=== PATIENT | female | born 2000 | race Caucasian/White ===

== ENCOUNTER 2020-07-17 19:57 | Inpatient (IN) ==
[2020-07-17] MEDS ORDERED: LACTATED RINGERS 1,000 ML IV ONE (20:06)
[2020-07-17] MEDS ORDERED: MEPERIDINE 50 MG/1 ML VIAL IM PRN (20:06)
[2020-07-17 20:24] LABS: Basophils % 0.3 % (0.0-0.8); Eosinophils % 0.1 % (0.00-10.9); Hematocrit 30.5 VOL% (35.7-47.0); Hemoglobin 9.2 GM/DL (12.0-16.0); Immature Granulocytes % 0.8 %; Immature Granulocytes Absolute 0.12 #; Lymphocytes # 1.6 10*3/uL (1.4-4.0); Lymphocytes % 10.3 % (21.3-54.2); Mean Corpuscular HGB Conc 30.2 GM/DL (32-36); Mean Corpuscular Volume 73.3 FL (87-102); Mean Platelet Volume 11.1 FL (9.6-12.0); Monocytes % 3.8 % (1.7-12.7); Neutrophils % 84.7 % (38.7-73.9); Platelet Count 257 T/CUMM (130-400); Red Blood Count 4.16 MC/CUMM (3.8-5.5); Red Cell Distribution Width 16.2 % (9.3-17.3); White Blood Count 15.2 T/CUMM (4-12)
[2020-07-17 20:54] LABS: Albumin 2.8 G/DL (3.4-5.0); Bilirubin,Total 0.4 MG/DL (0.2-1.0); Osmolality,Calculated 273.7 MOS/KG (273-304); Total Protein 7.3 G/DL (6.4-8.3)
[2020-07-18] MEDS: ONDANSETRON 4 MG/2 ML VIAL IV PRN ×2 (00:40→08:24)
[2020-07-18] MEDS: MEPERIDINE 50 MG/1 ML VIAL IV PRN ×2 (00:44→05:21)
[2020-07-18] MEDS: LACTATED RINGERS 1,000 ML IV SCH ×2 (07:17→09:18)
[2020-07-18] MEDS ORDERED: ePHEDrine 50 MG/ML VIAL IV PRN (08:15)
[2020-07-18] MEDS ORDERED: NALOXONE 0.4 MG/ML VIAL IV PRN (08:15)
[2020-07-18] MEDS ORDERED: diphenhydrAMINE 50 MG/1 ML VIAL IV PRN (08:15)
[2020-07-18] MEDS ORDERED: FAMOTIDINE 20 MG/2 ML VIAL IV ONE (08:16)
[2020-07-18] MEDS ORDERED: CITRIC ACID/SODIUM CITRATE 30 ML UDCUP PO ONE (08:16)
[2020-07-18] MEDS ORDERED: OXYTOCIN/LR 20 UNIT/1,000 ML BAG IV SCH (09:00)
[2020-07-18] MEDS: fentaNYL 2 MCG/ROPIV 0.2% EPID 100 ML EPIDURAL SCH ×2 (09:54→16:01)
[2020-07-18 12:35] LABS: Bilirubin,Urine Negative (Negative); Blood, Urine Moderate mg/dL (Negative); Glucose,Urine (UA) Negative (Negative); Ketones,Urine Negative (Negative); Mucus,Urine Occasional /LPF (Occasional); Nitrite,Urine Negative (Negative); Protein,Urine Negative; RBC,Urine 7 /HPF (0-4); Squamous Epithelial Cell,Urine Occasional /HPF (0-10); Urine Appearance CLEAR (Clear); Urine Color Yellow (Yellow); Urine Specific Gravity 1.015 (1.001-1.035); Urine Urobilinogen < 2.0 EU/DL (0.2-1.0); WBC,Urine 2 /HPF (0-6)
[2020-07-18] MEDS ORDERED: miSOPROStoL 200 MCG TABLET ONE (16:52)
[2020-07-18] MEDS ORDERED: TRANEXAMIC ACID 1,000 MG/10 ML VIAL ONE (16:52)
[2020-07-18] MEDS ORDERED: METHYLERGONOVINE 0.2 MG/1 ML AMP ONE (16:53)
[2020-07-18] MEDS ORDERED: CARBOPROST TROMETHAMINE 250 MCG/ML AMP IM ONE (16:53)
[2020-07-18] MEDS ORDERED: RHO(D) IMMUNE GLOBULIN 300 MCG SYRINGE IM ONE (17:24)
[2020-07-18] MEDS ORDERED: ONDANSETRON 4 MG/2 ML VIAL IV PRN (17:24)
[2020-07-18] MEDS ORDERED: MEASLES/MUMPS/RUBELLA VACCINE 0.5 ML VIAL SUBCUT ONE (17:24)
[2020-07-18] MEDS ORDERED: LANOLIN 50% CREAM 0.3 OZ TUBE TOP PRN (17:24)
[2020-07-18] MEDS ORDERED: BENZOCAINE 20%/MENTHOL 0.5% SPRAY 56 GM CAN TOP PRN (17:24)
[2020-07-18] MEDS ORDERED: BISACODYL 10 MG SUPP RECTAL PRN (17:24)
[2020-07-18] MEDS ORDERED: OXYTOCIN/LR 20 UNIT/1,000 ML BAG IV ONE (17:24)
[2020-07-18] MEDS ORDERED: oxyCODONE/ACETAMINOPHEN 5-325 MG TABLET PO PRN (17:24)
[2020-07-18] MEDS ORDERED: HYDROCORTISONE 2.5% RECTAL CREAM 30 GM TUBE TOP PRN (17:24)
[2020-07-18] MEDS ORDERED: ACETAMINOPHEN 325 MG TABLET PO PRN (17:24)
[2020-07-18] MEDS ORDERED: WITCH HAZEL PADS 100/JAR TOP PRN (17:24)
[2020-07-18] MEDS ORDERED: DIPH/TET/ACEL PERT BOOSTER VACCINE 0.5 ML VIAL IM ONE (17:24)
[2020-07-18 17:48] LABS: Cord Arterial Blood HCO3 19.3 MMOL/L
[2020-07-18 17:51] LABS: Cord Venous Blood HCO3 21.9 MMOL/L; Cord Venous Blood PCO2 51.7 MMHG
[2020-07-18 17:52] LABS: Cord Venous Blood PO2 16.5
[2020-07-18] MEDS: IBUPROFEN 800 MG TABLET PO PRN (21:13)
[2020-07-18] MEDS: oxyCODONE/ACETAMINOPHEN 5-325 MG TABLET PO PRN (22:21)
[2020-07-19 07:15] LABS: Basophils % 0.2 % (0.0-0.8); Eosinophils # 0.1 10*3/uL (0.0-0.87); Eosinophils % 0.9 % (0.00-10.9); Hematocrit 27.9 VOL% (35.7-47.0); Hemoglobin 8.4 GM/DL (12.0-16.0); Immature Granulocytes % 0.6 %; Immature Granulocytes Absolute 0.09 #; Lymphocytes % 12.9 % (21.3-54.2); Mean Corpuscular HGB Conc 30.1 GM/DL (32-36); Mean Platelet Volume 11.3 FL (9.6-12.0); Monocytes % 4.1 % (1.7-12.7); Neutrophils % 81.3 % (38.7-73.9); Platelet Count 193 T/CUMM (130-400); Red Blood Count 3.82 MC/CUMM (3.8-5.5); Red Cell Distribution Width 16.2 % (9.3-17.3); White Blood Count 15.2 T/CUMM (4-12)
[2020-07-19] MEDS: oxyCODONE/ACETAMINOPHEN 5-325 MG TABLET PO PRN (08:06)
[2020-07-19] MEDS: DOCUSATE SODIUM 100 MG CAPSULE PO SCH ×2 (08:07→20:22)
[2020-07-19] MEDS: IBUPROFEN 800 MG TABLET PO PRN ×2 (08:07→14:59)
[2020-07-20] MEDS: IBUPROFEN 800 MG TABLET PO PRN (06:51)
[2020-07-20 07:15] VITALS: BP 116/65
[2020-07-20] MEDS: DOCUSATE SODIUM 100 MG CAPSULE PO SCH (09:37)
== END 2020-07-20 13:00 | disposition home or self-care (01) | DRG 560 ==
LOC: N.LDOUT 19:57 → N.LD 19:58 → N.OB 07-19 15:15
PROVIDERS: ADMIT Obstetrics & Gynecology; ATTEND Obstetrics & Gynecology